=== PATIENT | female | born 1970 | race Hispanic/Latino ===

== ENCOUNTER 2017-06-08 13:17 | Emergency (ER) | payer SELFPAY ==
[2017-06-08 18:13] VITALS: BP 160/105
--- NOTE | 2017-06-08 21:26 | Emergency Department Report ---
HPI - General Chief Complaint: Extremity Injury, Lower Time Seen by Provider: 06/08/17 21:18 - HPI HPI: Patient is a 46-year-old female with no prior medical history presents complaining of left foot pain for the past 3 days. Patient states about 3 days ago she was moving a coffee table when the coffee table fell on her left foot. Patient states swelling after incident. Patient states the pain is gotten slightly tender and she is able to walk on it. She describes it as throbbing and aching in nature SHE DENIES FEVER CHILLS NAUSEA VOMITING OR ANY OTHER PROBLEMS ED Past Medical Hx - Past Medical History Previous Medical History?: Yes Additional medical history: heart murmur - Surgical History Past Surgical History?: Yes Additional Surgical History: tonsillectomy, bladder surgery as a child - Social History Smoking Status: Current Every Day Smoker Substance Use Type: Alcohol - Medications Home Medications: Home Medications Medication Instructions Recorded Confirmed Last Taken Type Diclofenac Potassium 50 mg PO DAILY #20 tablet 06/08/17 Unknown Rx ED Review of Systems ROS: Stated complaint: LT FOOT PAIN Other details as noted in HPI Constitutional: denies: chills, fever Eyes: denies: eye pain, eye discharge, vision change ENT: denies: ear pain, throat pain Respiratory: denies: cough, shortness of breath, wheezing Cardiovascular: denies: chest pain, palpitations Endocrine: no symptoms reported Gastrointestinal: denies: abdominal pain, nausea, diarrhea Genitourinary: denies: urgency, dysuria, discharge Musculoskeletal: denies: back pain, joint swelling, arthralgia Skin: denies: rash, lesions Neurological: denies: headache, weakness, paresthesias Psychiatric: denies: anxiety, depression Hematological/Lymphatic: denies: easy bleeding, easy bruising Physical Exam - Physical Exam Vital Signs: Vital Signs 06/08/17 06/08/17 13:51 18:12 Temperature 98.1 F 98.2 F Pulse Rate 86 80 Respiratory 18 20 Rate Blood Pressure 153/106 160/105 O2 Sat by Pulse 100 100 Oximetry Physical Exam: GENERAL: Alert and oriented x3, no apparent distress, Normal Gait, atraumatic. HEAD: Head is normocephalic and a-traumatic. LUNGS: Symetrical with respiration, No wheezing, no rales or crackles, CTAB. HEART: S1, S2 present, regular rate and rhythm without murmur, no rubs, no gallops. Non tender to palpation ABDOMEN: No organomegaly was noted,Positive bowel sounds, soft, and non- distended. . Nontender to palpation on all Quadrants, NO CVA tenderness. EXTREMITIES/MUSCULOSKELETAL: No cyanosis, clubbing, rash, lesions or edema. Full ROM bilaterally. UE/LE Pulses 2+ bilaterally. Joints are intact. Mild tenderness to palpation of the anterior lateral aspect of the foot anteriorly. Patient able to flex and extend foot. No ecchymosis, no swelling. NEUROLOGIC: The patient is cooperative with no focal neurologic deficits. Cranial nerves II through XII are grossly intact. Normal speech. SKIN: Warm and dry, No lesions, No ulceration or induration present. ED Course Vital Signs 06/08/17 06/08/17 13:51 18:12 Temperature 98.1 F 98.2 F Pulse Rate 86 80 Respiratory 18 20 Rate Blood Pressure 153/106 160/105 O2 Sat by Pulse 100 100 Oximetry ED Medical Decision Making - Medical Decision Making 46-year-old female presents with left foot sprain ED course: Patient's left foot was Talha wrapped. Discussed rice protocol. Patient states she understands and will comply Discussed the patient to take Motrin and medication prescribed as needed for pain. Vital signs are stable patient is no acute distress. Discussed the patient have worsening symptoms to return to ED Discussed the patient will follow up primary care physician. Critical care attestation.: If time is entered above; I have spent that time in minutes in the direct care of this critically ill patient, excluding procedure time. ED Disposition Clinical Impression: Sprain of foot, left Qualifiers: Encounter type: initial encounter Qualified Code(s): S93.602A - Unspecified sprain of left foot, initial encounter Disposition: TO HOME OR SELFCARE Is pt being admited?: No Does the pt Need Aspirin: No Condition: Stable Instructions: Foot Sprain (ED), Ankle Exercises (GEN), RICE Therapy (ED) Prescriptions: Diclofenac Potassium 50 mg PO DAILY #20 tablet Referrals: PRIMARY CARE, [Primary Care Provider] - 3-5 Days [facility] [Outside] - 3-5 Days [facility] [Outside] - 3-[address] [facility] [Outside] - 3-5 Days Forms: Work/School Release Form Time of Disposition: 21:37
== END 2017-06-08 22:11 | disposition home or self-care (01) ==
LOC: ED 13:17
DX: S93.602A Unspecified sprain of left foot, initial encounter (principal); F17.210 Nicotine dependence, cigarettes, uncomplicated; W22.8XXA Striking against or struck by other objects, initial encounter; Y93.89 Activity, other specified; Y92.89 Other specified places as the place of occurrence of the external cause; Y99.8 Other external cause status
CPT/HCPCS: 99282

== ENCOUNTER 2021-06-10 10:00 | Outpatient (CLI) | payer MEDICAID ==
[2021-06-10 10:33] VITALS: BP 144/70
[2021-06-10 10:45] LABS: Hematocrit 36.2 % (30.3-42.9); Hemoglobin 12.4 gm/dl (10.1-14.3); Mean Corpuscular HGB Conc 34 % (30-34); Mean Corpuscular Volume 90 fl (79-97); Platelet Count 271 K/mm3 (140-440); Red Blood Count 4.04 M/mm3 (3.65-5.03); Red Cell Distribution Width 12.9 % (13.2-15.2)
[2021-06-10 11:05] LABS: BUN/Creatinine Ratio 19; Blood Urea Nitrogen 15 mg/dL (7-17); Calcium 9.4 mg/dL (8.4-10.2); Hemolysis Index 4
--- NOTE | 2021-06-10 11:05 | Electrocardiograph Report ---
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
[2021-06-10 11:09] LABS: INR 0.95 (0.87-1.13)
[2021-06-10 11:10] LABS: Partial Thromboplastin Time 30.2 Sec. (24.2-36.6)
--- NOTE | 2021-06-10 11:41 | Anesthesia Consultation ---
Anesthesia Consult and Med Hx Date of service: 06/12/21 - Airway Anesthetic Teeth Evaluation: Edentulous (Upper) ROM Head & Neck: Adequate Mental/Hyoid Distance: Adequate Mallampati Class: Class II Intubation Access Assessment: Good - Pre-Operative Health Status ASA Pre-Surgery Classification: ASA3 Proposed Anesthetic Plan: General - Pulmonary Hx Smoking: Yes (FORMER SMOKER) - Cardiovascular System Hx Peripheral Vascular Disease: Yes (Abdominal aortic stenosis and bilateral iliac artery stenosis) - Central Nervous System Hx Psychiatric Problems: Yes (Anxiety) - Gastrointestinal Hx Gastroesophageal Reflux Disease: No - Endocrine Hx Renal Disease: No Hx Liver Disease: No Hx Non-Insulin Dependent Diabetes: No Hx Thyroid Disease: Yes Hx Hypothyroidism: Yes - Hematic Hx Anemia: Yes - Other Systems Hx Alcohol Use: Yes (FORMER DRINKER) Hx Substance Use: No Hx Cancer: No Hx Obesity: No
== END 2021-06-10 23:59 | disposition home or self-care (01) ==
LOC: LAB 10:00 → EDSTATUS 06-12 10:00
PROVIDERS: ATTEND Surgery Vascular Surgery
DX: I71.4 Abdominal aortic aneurysm, without rupture (principal); E03.9 Hypothyroidism, unspecified; D64.9 Anemia, unspecified; Z87.891 Personal history of nicotine dependence; Z20.822 Contact with and (suspected) exposure to COVID-19; Z72.89 Other problems related to lifestyle; Z79.899 Other long term (current) drug therapy; Z98.890 Other specified postprocedural states
CPT/HCPCS: 36415; 80048; 85027; 85610; 85730; 93005; U0003

== ENCOUNTER 2022-01-13 13:11 | Outpatient (CLI) | payer MEDICAID ==
--- NOTE | 2022-01-13 15:29 | XRay Report ---
[facility] 2 VIEWS INDICATION / CLINICAL INFORMATION: PAIN IN PELVIS, UNSPECIFIED HIP COMPARISON: None available. FINDINGS: BONES / JOINT(S): No acute fracture or subluxation. No significant arthritis. SOFT TISSUES: No significant abnormality. ADDITIONAL FINDINGS: Aortoiliac stent graft noted. Signer Name: Jax Gardner MD Signed: 01/13/2022 3:25 PM Workstation Name: Functional Neuromodulation
== END 2022-01-13 13:12 | disposition home or self-care (01) ==
LOC: XRAY 13:11
PROVIDERS: ATTEND Orthopaedic Surgery
DX: M25.559 Pain in unspecified hip (principal); Z95.2 Presence of prosthetic heart valve
CPT/HCPCS: 72170